=== PATIENT | female | born 1975 | race Caucasian/White ===

== ENCOUNTER 2019-12-02 08:28 | Day surgery (SDC) | payer BC ==
--- NOTE | 2019-11-29 12:19 | EKG REPORT ---
SEVERITY:- BORDERLINE ECG - SINUS RHYTHM LA ENLARGEMENT NO CHANGE FROM LAST EKG 03/09/15 : Confirmed by: Jonathan Diaz MD 29-Nov-2019 12:18:11
[2019-11-29 12:34] LABS: HEMATOCRIT 43.2 % (36.0-47.0); HEMOGLOBIN 14.9 g/dL (12.0-15.5); MEAN CORPUSCULAR HEMOGLOBIN 31.8 pg (27.0-33.4); MEAN CORPUSCULAR HGB CONC 34.5 g/dL (32.0-36.0); MEAN CORPUSCULAR VOLUME 92 fl (80-97); PLATELET COUNT 245 10^3/uL (150-450); RED BLOOD COUNT 4.69 10^6/uL (3.72-5.28); RED CELL DISTRIBUTION WIDTH 12.3 % (11.5-14.0); WHITE BLOOD COUNT 5.2 10^3/uL (4.0-10.5)
[2019-11-29 12:43] LABS: APPEARANCE,URINE CLEAR; BILIRUBIN,URINE NEGATIVE (NEGATIVE); COLOR,URINE COLORLESS; GLUCOSE, URINE NEGATIVE (NEGATIVE); KETONES,URINE NEGATIVE (NEGATIVE); LEUKOCYTE ESTERASE,URINE NEGATIVE (NEGATIVE); NITRITE,URINE NEGATIVE (NEGATIVE); PROTEIN,URINE NEGATIVE (NEGATIVE); URINE SPECIFIC GRAVITY 1.003; UROBILINOGEN,URINE NEGATIVE mg/dL (<2.0)
[2019-11-29 12:53] LABS: ALBUMIN 4.6 g/dL (3.5-5.0); ALKALINE PHOSPHATASE 96 U/L (38-126); ANION GAP 7 (5-19); ASPARTATE AMINO TRANSFERASE 30 U/L (14-36); BILIRUBIN,DIRECT 0.4 mg/dL (0.0-0.4); BILIRUBIN,TOTAL 0.7 mg/dL (0.2-1.3); BLOOD UREA NITROGEN 18 mg/dL (7-20); CALCIUM 9.4 mg/dL (8.4-10.2); CARBON DIOXIDE 27 mmol/L (22-30); CHLORIDE 104 mmol/L (98-107); GLUCOSE 86 mg/dL (75-110); POTASSIUM 4.5 mmol/L (3.6-5.0); TOTAL PROTEIN 7.5 g/dL (6.3-8.2)
--- NOTE | 2019-11-29 13:11 | RADIOLOGY REPORT (SQ) ---
EXAM DESCRIPTION: CHEST PA/LATERAL IMAGES COMPLETED DATE/TIME: 11/29/2019 12:12 pm REASON FOR STUDY: PRE-OP COMPARISON: None. EXAM PARAMETERS: NUMBER OF VIEWS: two views TECHNIQUE: Digital Frontal and Lateral radiographic views of the chest acquired. RADIATION DOSE: NA LIMITATIONS: none FINDINGS: LUNGS AND PLEURA: No opacities, masses or pneumothorax. No pleural effusion. MEDIASTINUM AND HILAR STRUCTURES: No masses or contour abnormalities. HEART AND VASCULAR STRUCTURES: Heart normal size. No evidence for failure. BONES: No acute findings. HARDWARE: None in the chest. OTHER: No other significant finding. IMPRESSION: NO SIGNIFICANT RADIOGRAPHIC FINDING IN THE CHEST. TECHNICAL DOCUMENTATION: JOB ID: [id number] 2010 [employer]- All Rights Reserved Reading location - IP/workstation name: [email or web address]
[~2019-12-02 08:28] MED LIST: CEFAZOLIN 1 GM/D5W RTU 1 GM/50 ML RTUPB IV ONE; CEFAZOLIN 1 GM/D5W RTU 1 GM/50 ML RTUPB IV PRN; LACTATED RINGERS 1000 ML IV PRN; LIDOCAINE 0.5% INJ-PF (5 MG/ML) 50 ML SDV SUBCUT PRN
[2019-12-02] MEDS ORDERED: MIDAZOLAM 2 MG/2 ML INJ ONE (09:47)
[2019-12-02] MEDS ORDERED: MORPHINE SULFATE 10 MG/ML INJ ONE (09:47)
[2019-12-02] MEDS ORDERED: FENTANYL CITRATE INJ/PF 250 MCG/5 ML AMPULE ONE (09:47)
[2019-12-02] MEDS ORDERED: PROPOFOL INJ 200 MG/20 ML VIAL IV ONE (09:48)
[2019-12-02] MEDS ORDERED: ONDANSETRON HCL INJ/PF 4 MG/2 ML SDV IV PRN (11:01)
[2019-12-02] MEDS ORDERED: PROMETHAZINE HCL INJ 25 MG/1 ML VIAL IV PRN ×3 (11:01→12:24)
[2019-12-02] MEDS ORDERED: MORPHINE SULFATE 10 MG/ML INJ IV PRN ×2 (11:01→12:30)
[2019-12-02] MEDS ORDERED: MEPERIDINE HCL/PF INJ 25 MG/1 ML DISP.SYRIN IV PRN (11:01)
[2019-12-02] MEDS ORDERED: FENTANYL CITRATE INJ/PF 100 MCG/2 ML AMPUL IV PRN ×3 (11:01)
[2019-12-02] MEDS ORDERED: DIPHENHYDRAMINE HCL 50 MG/ML VIAL IV PRN (11:01)
[2019-12-02] MEDS ORDERED: DIPH/PERTUSS(ACELL)/TETANUS VAC/PF 0.5 ML SYR (>=10YO) IM PRN (12:24)
[2019-12-02] MEDS ORDERED: ACETAMINOPHEN 325 MG TABLET PO PRN (12:24)
[2019-12-02] MEDS ORDERED: RINGERS SOLUTION,LACTATED 1,000 ML IV PRN (12:24)
[2019-12-02] MEDS ORDERED: OXYCODONE-ACETAMINOPHEN 5-325 MG TABLET PO PRN ×2 (12:24)
[2019-12-02] MEDS ORDERED: SIMETHICONE 80 MG TAB.CHEW PO PRN (12:24)
[2019-12-02] MEDS ORDERED: OXYTOCIN/0.9 % SODIUM CHLORIDE 30 UNIT/500 ML RTUINJ IV PRN (12:24)
[2019-12-02] MEDS ORDERED: MEASLES,MUMPS&RUBELLA VACC/PF 0.5 ML VIAL SUBCUT PRN (12:24)
[2019-12-02] MEDS ORDERED: ACETAMINOPHEN 1,000 MG/100 ML RTUPB IV PRN (12:30)
--- NOTE | 2019-12-02 12:49 | Operative Report ---
Operative Report DATE OF SURGERY: 12/02/19 PREOPERATIVE DIAGNOSIS: Abnormal uterine bleeding, personal history of AVIS-2, P elvic pain POSTOPERATIVE DIAGNOSIS: Same OPERATION: Biotic assisted total laparoscopic hysterectomy with bilateral salpingectomy left ovarian cystectomy SURGEON: DEMETRICE PATEL 1ST [employer]G BATHER: CLEMENTE SMITH ANESTHESIA: GA TISSUE REMOVED OR ALTERED: Uterus cervix bilateral fallopian tubes left ovarian cyst COMPLICATIONS: None ESTIMATED BLOOD LOSS: 100 cc INTRAOPERATIVE FINDINGS: 12-week uterus boggy in appearance consistent with adenomyosis large cervix left ovarian cyst small and removed benign in appearance PROCEDURE: Patient was taken to the operating room prepared and draped in normal sterile fashion in dorsolithotomy position. Under sterile conditions a Zavala catheter was placed to gravity. Speculum was placed into the vagina and the cervix was grasped on the anterior lip with a single-tooth tenaculum. The cervix was then dilated to accommodate a large V care uterine manipulator. Manipulate it was placed gloves were changed and attention was turned to the upper portion of the case. A 2-1/2 cm umbilical skin incision was made 11 blade and this was carried through to the underlying layer of fascia with the same 11 blade. It was grasped to Georgina's acted with Dyer's. New cavity was entered bluntly. A GelPort was placed in a normal fashion the camera port and air seal in the appropriate locations. Veliz was then inflated with approximately 2 L of CO2 gas. The camera was then introduced into the peritoneal cavity through the camera port and the patient was placed in steep Trendelenburg. The above findings were noted. Under direct visualization two 5 mm ports were placed approximately 10 cm on either side of the umbilicus. The robot was then docked with the vessel sealer placed on the patient's left and the monopolar scissors placed placed on the patient's right. I then unscrubbed and set at the robotic console beginning with the left adnexa fallopian tube was transected from the uterus using the vessel sealer and monopolar scissors as needed. The fallopian tube was then removed through the assistance port. The left ovary was grasped and the left ovarian cyst was cut away using monopolar scissors following the plane of the cyst between the cyst and ovary . the ovarian ligament was then transected using the vessel sealer. The uterine artery was skeletonized using blunt dissection and ligated using the vessel sealer down to the level of the external cervical os. The bladder flap was then begun using monopolar scissors and blunt dissection over the V care cup noted through the mucosa. Attention was then turned to the right adnexa where the fallopian tube was transected in a similar fashion. The utero-ovarian ligament was transected using the vessel sealer. The Uterine artery was then transected using the vessel sealer and skeletonized using blunt dissection. The vessel sealer was again used to completely transect the uterine artery down to the level of the external cervical os. The bladder flap was completed using similar sharp and blunt dissection. Once the bladder was felt to be adequately away from the lower uterine segment, the colpotomy was begun on the anterior aspect of the cervix following the outline of the V care cup mucosa. The cup was followed in a circumferential fashion completely around the cervix estimate was completely freed. The specimen was then removed through the vaginal defect. The instruments were then changed to a Bob needle motor coach bus driver and pro-grasp. AV lock needle was introduced through the assistance port. The lock needle was used to close the vaginal cuff and hemostasis. The needle was then removed through the assistance port. The peritoneal cavity was carefully inspected the ureters were noted to both be peristalsing and there was no signs of hydroureter. The robot was then undocked. The fascia was closed at the umbilical skin incision seen 0 Vicryl 3 skin incisions were closed using 4-0 Vicryl. Sponge lap and needle counts were correct x2 and the patient was taken to recovery in stable condition.
[2019-12-02] MEDS ORDERED: KETOROLAC TROMETHAMINE INJ/PF 30 MG/1 ML SDV IV SCH (14:00)
[2019-12-02] MEDS ORDERED: ROCURONIUM BROMIDE INJ 50 MG/5 ML VIAL IV ONE (15:04)
[2019-12-02] MEDS ORDERED: DIPHENHYDRAMINE HCL 50 MG/ML VIAL ONE (15:04)
[2019-12-02] MEDS ORDERED: GLYCOPYRROLATE 1 MG/5 ML VIAL ONE (15:04)
[2019-12-02] MEDS ORDERED: NEOSTIGMINE METHYLSULFATE 10 MG/10 ML VIAL ONE (15:04)
[2019-12-02] MEDS ORDERED: ONDANSETRON HCL INJ/PF 4 MG/2 ML SDV ONE (15:04)
[2019-12-02] MEDS ORDERED: KETOROLAC TROMETHAMINE 60 MG/2 ML SDV ONE (15:04)
[2019-12-02] MEDS ORDERED: DEXAMETHASONE SOD PHOSPHATE INJ 4 MG/1 ML VIAL ONE (15:04)
[2019-12-02] MEDS ORDERED: SUCCINYLCHOLINE CHLORIDE INJ 200 MG/10 ML VIAL ONE (15:04)
[2019-12-02] MEDS ORDERED: DOCUSATE SODIUM 100 MG CAPSULE PO SCH (18:00)
[2019-12-02] MEDS: IBUPROFEN 800 MG TABLET PO SCH ×2 (18:14→23:44)
[2019-12-02] MEDS: KETOROLAC TROMETHAMINE INJ/PF 30 MG/1 ML SDV IV SCH (18:22)
[2019-12-03] MEDS: KETOROLAC TROMETHAMINE INJ/PF 30 MG/1 ML SDV IV SCH (06:02)
[2019-12-03] MEDS: IBUPROFEN 800 MG TABLET PO SCH (06:02)
--- NOTE | 2019-12-03 08:45 | PDOC DISCHARGE SUMMARY ---
Impression - Admit/DC Date/PCP Admission Date/Primary Care Provider: ISIAH KILLIAN MD Discharge Date: 12/03/19 - Discharge Diagnosis (1) Abnormal uterine and vaginal bleeding, unspecified Is this a current diagnosis for this admission?: Yes (2) Pelvic pain Is this a current diagnosis for this admission?: Yes (3) Ovarian cyst Is this a current diagnosis for this admission?: Yes - Assessment Summary: patient underwent RATLH w/ bilateral salpingectomy and left ovarian cystectomy. unremarkable post operative course. voiding well and passing flatus. tolerating regular diet - Additional Information Resuscitation Status: Full Code Discharge Diet: As Tolerated Discharge Activity: Balance Activity w/Rest, No Driving, No Lifting Over 10 Pounds, No Lifting/Push/Pulling, Pelvic Rest, No tub bath, Walk Frequently Referrals: ISIAH KILLIAN MD [Primary Care Provider] - Prescriptions: Oxycodone HCl/Acetaminophen [Percocet 5-325 mg Tablet] 1 tab PO Q4HP PRN #30 tablet PRN Reason: Docusate Sodium [Colace 100 mg Capsule] 100 mg PO BID #60 capsule Ibuprofen [Motrin 800 mg Tablet] 800 mg PO Q8H #60 tablet Home Medications: Losartan/Hydrochlorothiazide [Losartan-Hctz 100-25 mg Tab] 1 each PO DAILY 11/29/19 Docusate Sodium [Colace 100 mg Capsule] 100 mg PO BID #60 capsule 12/03/19 Ibuprofen [Motrin 800 mg Tablet] 800 mg PO Q8H #60 tablet 12/03/19 Oxycodone HCl/Acetaminophen [Percocet 5-325 mg Tablet] 1 tab PO Q4HP PRN #30 tablet 12/03/19 History of Present Illiness History of Present Illness: SELENE UNDERWOOD is a 44 year old female Physical Exam - Physical Exam Vital Signs: Temp Pulse Resp BP Pulse Ox 97.9 F 62 18 114/68 98 12/03/19 00:40 12/03/19 00:40 12/03/19 00:40 12/03/19 00:40 12/03/19 00:40 Intake & Output 12/02/19 12/03/19 12/04/19 06:59 06:59 06:59 Intake Total 2050 Output Total 825 Balance 1225 Weight 73 kg Results Laboratory Results: WBC 5.2 10^3/uL (4.0-10.5) 11/29/19 11:45 RBC 4.69 10^6/uL (3.72-5.28) 11/29/19 11:45 Hgb 14.9 g/dL (12.0-15.5) 11/29/19 11:45 Hct 43.2 % (36.0-47.0) 11/29/19 11:45 MCV 92 fl (80-97) 11/29/19 11:45 MCH 31.8 pg (27.0-33.4) 11/29/19 11:45 MCHC 34.5 g/dL (32.0-36.0) 11/29/19 11:45 RDW 12.3 % (11.5-14.0) 11/29/19 11:45 Plt Count 245 10^3/uL (150-450) 11/29/19 11:45 Sodium 137.8 mmol/L (137-145) 11/29/19 11:45 Potassium 4.6 mmol/L (3.6-5.0) 12/02/19 08:55 Chloride 104 mmol/L (98-107) 11/29/19 11:45 Carbon Dioxide 27 mmol/L (22-30) 11/29/19 11:45 Anion Gap 7 (5-19) 11/29/19 11:45 BUN 18 mg/dL (7-20) 11/29/19 11:45 Creatinine 0.67 mg/dL (0.52-1.25) 11/29/19 11:45 Est GFR ( Amer) > 60 (>60) 11/29/19 11:45 Est GFR (MDRD) Non-Af > 60 (>60) 11/29/19 11:45 Glucose 86 mg/dL (75-110) 11/29/19 11:45 Calcium 9.4 mg/dL (8.4-10.2) 11/29/19 11:45 Total Bilirubin 0.7 mg/dL (0.2-1.3) 11/29/19 11:45 Direct Bilirubin 0.4 mg/dL (0.0-0.4) 11/29/19 11:45 Neonat Total Bilirubin Not Reportable 11/29/19 11:45 Neonat Direct Bilirubin Not Reportable 11/29/19 11:45 Neonat Indirect Bili Not Reportable 11/29/19 11:45 AST 30 U/L (14-36) 11/29/19 11:45 ALT 16 U/L (<35) 11/29/19 11:45 Alkaline Phosphatase 96 U/L (38-126) 11/29/19 11:45 Total Protein 7.5 g/dL (6.3-8.2) 11/29/19 11:45 Albumin 4.6 g/dL (3.5-5.0) 11/29/19 11:45 Serum HCG, Qual NEGATIVE (NEGATIVE) 12/02/19 08:55 Urine Color COLORLESS 11/29/19 10:20 Urine Appearance CLEAR 11/29/19 10:20 Urine pH 8.0 (5.0-9.0) 11/29/19 10:20 Ur Specific [place] 1.003 11/29/19 10:20 Urine Protein NEGATIVE mg/dL (NEGATIVE) 11/29/19 10:20 Urine Glucose (UA) NEGATIVE mg/dL (NEGATIVE) 11/29/19 10:20 Urine Ketones NEGATIVE mg/dL (NEGATIVE) 11/29/19 10:20 Urine Blood SMALL (NEGATIVE) H 11/29/19 10:20 Urine Nitrite NEGATIVE (NEGATIVE) 11/29/19 10:20 Urine Bilirubin NEGATIVE (NEGATIVE) 11/29/19 10:20 Urine Urobilinogen NEGATIVE mg/dL (<2.0) 11/29/19 10:20 Ur Leukocyte Esterase NEGATIVE (NEGATIVE) 11/29/19 10:20 Urine WBC (Auto) 0 /HPF 11/29/19 10:20 Urine RBC (Auto) 0 /HPF 11/29/19 10:20 Urine Bacteria (Auto) TRACE /HPF 11/29/19 10:20 Squamous Epi Cells Auto <1 /HPF 11/29/19 10:20 Urine Mucus (Auto) RARE /LPF 11/29/19 10:20 Urine Ascorbic Acid NEGATIVE (NEGATIVE) 11/29/19 10:20 COVID-19 Source NASOPHARYNGEAL 11/29/19 11:41 COVID-19 (MEGA) NOT DETECTED 11/29/19 11:41 Blood Type O POSITIVE 11/29/19 11:45 Antibody Screen NEGATIVE 11/29/19 11:45 Impressions: Chest X-Ray 11/29/19 11:56 IMPRESSION: NO SIGNIFICANT RADIOGRAPHIC FINDING IN THE CHEST. Stroke Is this a Stroke Patient?: No Acute Heart Failure - Is this a Heart Failure Patient?: No
[2019-12-03 09:10] LABS: HEMATOCRIT 36.2 % (36.0-47.0); HEMOGLOBIN 12.6 g/dL (12.0-15.5); MEAN CORPUSCULAR HEMOGLOBIN 31.9 pg (27.0-33.4); MEAN CORPUSCULAR HGB CONC 34.9 g/dL (32.0-36.0); MEAN CORPUSCULAR VOLUME 91 fl (80-97); PLATELET COUNT 253 10^3/uL (150-450); RED BLOOD COUNT 3.96 10^6/uL (3.72-5.28); WHITE BLOOD COUNT 9.2 10^3/uL (4.0-10.5)
[2019-12-03 10:46] VITALS: BP 114/80
== END 2019-12-03 10:30 | disposition home or self-care (01) ==
LOC: OROUT 08:28 → 2N 13:00 → OROUT 12-03 10:30
PROVIDERS: ATTEND Obstetrics & Gynecology
DX: N93.8 Other specified abnormal uterine and vaginal bleeding (principal); N87.0 Mild cervical dysplasia; N72 Inflammatory disease of cervix uteri; D25.9 Leiomyoma of uterus, unspecified; N80.0 Endometriosis of uterus; N83.12 Corpus luteum cyst of left ovary; N83.8 Other noninflammatory disorders of ovary, fallopian tube and broad ligament; I10 Essential (primary) hypertension; Z03.818 Encounter for observation for suspected exposure to other biological agents ruled out; Z79.899 Other long term (current) drug therapy
CPT/HCPCS: 93005; 86900; 86901; 36415 ×2; 86850; 84132; 84703; 85027 ×2; 80053; 81001; 88307 ×2; 71046; 94799; 93010; 00840; 58571; 58662; C1758; A4649; U0003; J2250; J0690; J3490 ×2; J1100; J1200; J1885 ×2; J3010; J2270; J2710; J0330; J2405; J7120; J2704; C9803; 840; 87635